=== PATIENT | female | born 1970 | race Caucasian/White ===

== ENCOUNTER 2020-09-08 17:22 | Emergency (ER) | payer BC ==
[2020-09-08 17:37] VITALS: BP 118/77; PULSE 82; TEMP 98.5; BMI 23.8
== END 2020-09-08 19:34 | disposition home or self-care (01) ==
LOC: FER 17:22
DX: R22.41 Localized swelling, mass and lump, right lower limb (principal); R22.42 Localized swelling, mass and lump, left lower limb
CPT/HCPCS: 93970-TC; 99284-25